=== PATIENT | female | born 2005 | race Two or more races ===

== ENCOUNTER 2024-03-12 20:10 | Emergency (ER) | payer OTHER ==
[~2024-03-12] VITALS: Ht 165.1 cm; Wt 60.2 kg
[2024-03-12] MEDS: SUMAtriptan SUCCINATE 6 MG/0.5 ML VL SC ONE (21:40)
[2024-03-12 21:44] VITALS: TEMP 98.4
[2024-03-12 22:55] LABS: Urine Bacteria FEW /hpf (None Seen); Urine Blood Negative /uL (Negative); Urine Clarity Clear (Clear); Urine Color Colorless (Yellow); Urine Protein, UAD Negative (Negative); Urine Specific Gravity 1.009 (1.001-1.035); Urine Urobilinogen Normal (Negative); Urine WBC 11 /hpf (0 - 5); Urine pH 7.5 (5.0-9.0)
[2024-03-12] MEDS ORDERED: SUMA50TA2 PO (22:57)
[2024-03-12 23:20] VITALS: PULSE 71; RESP 16; O2SAT 100
[2024-03-12 23:21] VITALS: BP 133/79; PULSE 71; RESP 16; O2SAT 100
== END 2024-03-12 23:20 | disposition home or self-care (01) ==
LOC: ER 20:10
DX: G43.909 Migraine, unspecified, not intractable, without status migrainosus (principal); R10.2 Pelvic and perineal pain; H53.149 Visual discomfort, unspecified; F17.290 Nicotine dependence, other tobacco product, uncomplicated; Z88.0 Allergy status to penicillin
CPT/HCPCS: 36415; 70450; 81001; 84702; 96372; 99285; J3030